=== PATIENT | male | born 1995 | race Caucasian/White ===

== ENCOUNTER 2019-02-03 02:16 | Emergency (ER) | payer OTHER ==
[~2019-02-03] VITALS: Ht 170.2 cm; Wt 72.7 kg
[2019-02-03 05:30] VITALS: BP 133/81
== END 2019-02-03 05:40 | disposition home or self-care (01) ==
LOC: EMS 02:16
DX: S63.637A Sprain of interphalangeal joint of left little finger, initial encounter (principal); W19.XXXA Unspecified fall, initial encounter; Y93.89 Activity, other specified; Y92.89 Other specified places as the place of occurrence of the external cause; Y99.8 Other external cause status